=== PATIENT | female | born 1970 | race Caucasian/White ===

== ENCOUNTER 2020-02-21 07:55 | Day surgery (SDC) | payer OTHER ==
[2020-02-19 09:32] LABS: EOSINOPHILS % (AUTO) 3.9 % (1.0-6.0); HEMATOCRIT 38.4 % (36-46); HEMOGLOBIN 13.1 g/dL (12.0-16.0); LYMPHOCYTES # (AUTO) 1.7 K/uL (1.0-4.8); MEAN CORPUSCULAR HEMOGLOBIN 31.5 pg (26.0-34.0); MEAN CORPUSCULAR HGB CONC 34.2 G/dL (31.0-37.0); MEAN CORPUSCULAR VOLUME 92 fL (80-100); MONOCYTES # (AUTO) 0.5 K/uL (0.1-1.0); MONOCYTES % (AUTO) 9.9 % (2.0-9.0); NEUTROPHILS % (AUTO) 54.2 % (40.0-70.0); PLATELET COUNT (AUTO) 292 K/uL (150-450); RED BLOOD CELL COUNT(AUTO) 4.17 MIL/uL (4.00-5.20); RED CELL DISTRIBUTION WIDTH 13.3 % (11.5-14.5)
[2020-02-19 09:41] LABS: CALCIUM, TOTAL 9.3 mg/dL (8.8-10.5); CREATININE 1.06 mg/dL (0.60-1.30); POTASSIUM 4.2 mmol/L (3.5-5.1)
[2020-02-19 09:50] LABS: INR 0.9 (0.9-1.1); PROTHROMBIN TIME 9.6 SEC (9.4-11.6)
[~2020-02-21] VITALS: Ht 180.3 cm; Wt 100.0 kg
[~2020-02-21 07:55] MED LIST: CeFAZolin 2 GM/DEXTROSE 50 ML IV ONE; RINGERS SOLUTION,LACTATED 1,000 ML IV ONE
[2020-02-21] MEDS ORDERED: ONDANSETRON HCL 4 MG/2 ML VIAL IVP ONE (07:56)
[2020-02-21] MEDS ORDERED: SUCCINYLCHOLINE CHLORIDE 20 MG/ML 10 ML VIAL IVP ONE (07:56)
[2020-02-21] MEDS ORDERED: ROCURONIUM BROMIDE 10 MG/ML 5 ML VIAL IVP ONE (07:56)
[2020-02-21] MEDS ORDERED: FentaNYL CITRATE-PF 100 MCG/2 ML VIAL IVP ONE (07:56)
[2020-02-21] MEDS ORDERED: MIDAZOLAM HCL 2 MG/2 ML VIAL IVP ONE (07:56)
[2020-02-21] MEDS ORDERED: KETOROLAC TROMETHAMINE 60 MG/2 ML VIAL IM ONE (07:56)
[2020-02-21] MEDS ORDERED: HYDROmorphone 2 MG/ML SYRINGE IVP ONE (07:56)
[2020-02-21] MEDS ORDERED: DEXAMETHASONE SOD PHOS 4 MG/ML VIAL IVP ONE (07:56)
[2020-02-21] MEDS ORDERED: RINGERS SOLUTION,LACTATED 1,000 ML IV ONE ×2 (08:00→11:44)
[2020-02-21] MEDS ORDERED: CeFAZolin 2 GM/DEXTROSE 50 ML IV ONE (08:00)
[2020-02-21] MEDS ORDERED: FentaNYL CITRATE-PF 100 MCG/2 ML VIAL IVP PRN (09:00)
[2020-02-21] MEDS ORDERED: HYDROmorphone 2 MG/ML SYRINGE IVP PRN (09:00)
[2020-02-21] MEDS ORDERED: MEPERIDINE-PF 25 MG/ML VIAL IVP PRN (09:00)
[2020-02-21] MEDS ORDERED: SODIUM CL IRRIG SOLN BAG 9,000 ML IRRIG ONE (09:11)
[2020-02-21] MEDS ORDERED: LIDOCAINE/PF 1% 30 ML VIAL ONE (09:12)
[2020-02-21] MEDS ORDERED: BUPIVACAINE HCL/PF 0.5% 30 ML VIAL ONE (09:12)
[2020-02-21] MEDS ORDERED: EPINEPHrine 1:1,000 [1 MG/ML] AMP ONE ×2 (09:12→10:01)
[2020-02-21] MEDS ORDERED: MELO-107 PO (09:18)
[2020-02-21] MEDS ORDERED: NORT25 PO (09:18)
[2020-02-21] MEDS ORDERED: DULO60CA44 PO (09:18)
[2020-02-21] MEDS ORDERED: LAMO100 PO (09:18)
[2020-02-21] MEDS ORDERED: OMEG-102 PO (09:18)
[2020-02-21] MEDS ORDERED: TRAM50TA4 PO (09:18)
[2020-02-21] MEDS ORDERED: HYDR2 PO (09:18)
[2020-02-21] MEDS ORDERED: CHOL200016 PO (09:18)
[2020-02-21] MEDS ORDERED: TOPI100T37 PO (09:18)
[2020-02-21] MEDS ORDERED: BENZ1TAB10 PO (09:18)
[2020-02-21] MEDS ORDERED: ZIPR80CA2 PO (09:18)
[2020-02-21] MEDS ORDERED: DICL2100G TP (09:18)
[2020-02-21] MEDS ORDERED: BUPR600F2 PO (09:18)
[2020-02-21] MEDS ORDERED: MELA5TAB3 PO (09:18)
[2020-02-21] MEDS ORDERED: LORA-1000 PO (09:18)
[2020-02-21] MEDS ORDERED: ACETAMINOPHEN 1000 MG/ISO-OSM 100 ML IV ONE (09:53)
[2020-02-21] MEDS ORDERED: SODIUM CHLORIDE 0.9% IRRIG ONE (13:05)
[2020-02-21] MEDS ORDERED: FentaNYL CITRATE-PF 100 MCG/2 ML VIAL ONE (13:59)
[2020-02-21] MEDS: FentaNYL CITRATE-PF 100 MCG/2 ML VIAL IVP PRN ×2 (14:00→14:15)
[2020-02-21] MEDS ORDERED: HYDROmorphone 2 MG/ML SYRINGE ONE (14:07)
[2020-02-21] MEDS: HYDROmorphone 2 MG/ML SYRINGE IVP PRN ×2 (14:09→14:22)
[2020-02-21] MEDS ORDERED: MEPERIDINE-PF 25 MG/ML VIAL ONE (14:17)
[2020-02-21] MEDS ORDERED: OXYGEN THERAPY IH SCH (20:00)
== END 2020-02-21 17:35 | disposition home or self-care (01) ==
LOC: SURGERY 07:55
PROVIDERS: ATTEND Orthopaedic Surgery
DX: S73.192A Other sprain of left hip, initial encounter (principal); M70.62 Trochanteric bursitis, left hip; X58.XXXA Exposure to other specified factors, initial encounter; Y93.89 Activity, other specified; Y92.89 Other specified places as the place of occurrence of the external cause; Y99.8 Other external cause status; Z11.59 Encounter for screening for other viral diseases; Z79.01 Long term (current) use of anticoagulants
CPT/HCPCS: 27062; 29915; 36415; 76000; 77071; 80048; 85025; 85610; 85730; 87635; C1713; J0131; J0171; J0330; J0690; J1100; J1170; J1885; J2175; J2250; J2405; J3010; J3490 ×3; J7120